=== PATIENT | male | born 1995 | race American Indian/Alaskan Native ===

== ENCOUNTER 2017-09-13 13:42 | Emergency (ER) | payer SELFPAY ==
[2017-09-13] MEDS ORDERED: MOTRIN PO ONE (20:31)
--- NOTE | 2017-09-13 20:31 | Emergency Department Report ---
ED Back Pain/Injury HPI - General Chief Complaint: Back Pain/Injury Stated Complaint: BACK PAIN POST FALL 2 DAYS AGO Time Seen by Provider: 09/13/17 19:43 Source: patient Limitations: No Limitations - History of Present Illness Initial Comments: Patient report back pain after playing soccer. Denies fall or injury. He said it started on Wednesday after he finished playing soccer and pain is increase in. Worse with movement and walking. Pain is located to his mid lower back distally. Pain is 9 out of 10 and aching. He said he took Tylenol and it helped but pain starts again after Tylenol wears off. Denies any numbness certainly to extremities. Denies any urinary burning frequency or urgency. Denies any abdominal pain. Denies any loss of bowel or bladder function. Denies any medical history. MD Complaint: back pain Onset/Timin -: days(s) Similar Symptoms Previously: No Place: street Radiation: none Severity: severe Severity scale (0 -10): 9 Quality: aching Consistency: constant Improves With: other (rest) Worsens With: movement, walking Context: other (Playing soccer) Associated Symptoms: denies other symptoms. denies: confusion, weakness, chest pain, numbness, difficulty walking, cough, difficulty urinating, diaphoresis, incontinence, fever/chills, constipation, headaches, abdominal pain, loss of appetite, malaise, nausea/vomiting, rash, seizure, shortness of breath, syncope Treatments Prior to Arrival: acetaminophen - Related Data Previous Rx's Medication Instructions Recorded Last Taken Type Ibuprofen [Motrin] 600 mg PO Q8H PRN #12 tablet 09/13/17 Unknown Rx Allergies Allergy/AdvReac Type Severity Reaction Status Date / Time No Known Allergies Allergy Unverified 09/13/17 14:05 ED Review of Systems ROS: Stated complaint: BACK PAIN POST FALL 2 DAYS AGO Other details as noted in HPI Comment: All other systems reviewed and negative Constitutional: no symptoms reported Respiratory: no symptoms reported Cardiovascular: denies: chest pain, palpitations, dyspnea on exertion, edema, syncope, paroxysmal nocturnal dyspnea Genitourinary: denies: urgency, dysuria, frequency, hematuria, discharge Musculoskeletal: back pain. denies: joint swelling, arthralgia, myalgia Skin: denies: rash Neurological: denies: headache, weakness, numbness, paresthesias, confusion, abnormal gait, vertigo ED Past Medical Hx - Past Medical History Previous Medical History?: No - Surgical History Past Surgical History?: No - Family History Family history: no significant - Social History Smoking Status: Never Smoker Substance Use Type: None - Medications Home Medications: Home Medications Medication Instructions Recorded Confirmed Last Taken Type Ibuprofen [Motrin] 600 mg PO Q8H PRN #12 tablet 09/13/17 Unknown Rx ED Physical Exam - General Limitations: No Limitations General appearance: alert, in no apparent distress - Head Head exam: Present: atraumatic, normocephalic, normal inspection, other - Eye Eye exam: Present: normal appearance (normal exam), PERRL, EOMI. Absent: nystagmus Pupils: Present: normal accommodation - ENT ENT exam: Present: normal exam, normal orophraynx, mucous membranes moist - Neck Neck exam: Present: normal inspection, full ROM, other (no C-spine tenderness). Absent: tenderness, lymphadenopathy - Respiratory Respiratory exam: Present: normal lung sounds bilaterally. Absent: respiratory distress, chest wall tenderness - Cardiovascular Cardiovascular Exam: Present: regular rate, normal rhythm, normal heart sounds - GI/Abdominal GI/Abdominal exam: Present: soft, normal bowel sounds. Absent: distended, tenderness, guarding, rebound, rigid, organomegaly, mass, bruit, pulsatile mass , hernia - Extremities Exam Extremities exam: Present: normal inspection, full ROM, normal capillary refill , other (no clubbing, cyanosis or edema. Positive pulses all extremities and no neurovascular compromise.). Absent: tenderness, pedal edema, joint swelling , calf tenderness - Back Exam Back exam: Present: normal inspection, full ROM, tenderness (L spine distally), vertebral tenderness (distally L spine), other (ambulates without any difficulties). Absent: CVA tenderness (R), CVA tenderness (L), muscle spasm, paraspinal tenderness, rash noted - Neurological Exam Neurological exam: Present: alert, oriented X3, normal gait, reflexes normal. Absent: motor sensory deficit - Expanded Neurological Exam Expanded Neurological exam: Absent: innattentive, memory loss-remote event, memory loss- recent event, ataxia, receptive aphasia, expressive aphasia, total aphasia, tremor, protecting the airway Patient oriented to: Present: person, place, time Speech: Present: fluid speech Cranial nerves: EOM's Intact: Normal, Gag Reflex: Normal, Tongue Deviation: Normal, Nystagmus: Normal, Facial Sensation: Normal Cerebellar function: Romberg: Normal Upper motor neuron: Pronator Drift: Normal, Sensory Extinction: Normal Sensory exam: Upper Extremity Light Touch: Normal, Upper Extremity Temperature: Normal, UE 2 Point Discrimination: Normal, Lower Extremity Light Touch: Normal, Lower Extremity Temperature: Normal, LE 2 Point Discrimination: Normal Motor strength exam: RUE: 5, LUE: 5, RLE: 5, LLE: 5 DTR: bicep (R): 2+, bicep (L): 2+, tricep (R): 2+, tricep (L): 2+, knee (R): 2+ , knee (L): 2+, ankle (R): 2+, ankle (L): 2+ Best Eye Response ([place]): (4) open spontaneously Best Motor Response (Vazquez): (6) obeys commands Best Verbal Response ([place]): (5) oriented Vazquez Total: 15 - Psychiatric Psychiatric exam: Present: normal affect, normal mood - Skin Skin exam: Present: warm, dry, intact, normal color. Absent: rash ED Course Vital Signs 09/13/17 14:05 Temperature 98.3 F Pulse Rate 77 Respiratory 16 Rate Blood Pressure 116/33 O2 Sat by Pulse 100 Oximetry - Reevaluation(s) Reevaluation #1: 09/13/17 21:41 Patient stable throughout ED course he was given Motrin 800 mg by mouth in emergency room for back pain which helped. ED Medical Decision Making - Radiology Data Radiology results: report reviewed X-ray of lumbar spine reveals negative lumbar spine series. Incidental findings for partial incomplete closure posterior element S1 - Medical Decision Making ED course: Is in a reports lower back pain after playing soccer 3 days ago. He reports taking Tylenol without any complete relief. Patient refers to pain as achy in and located in his lower back distally. Physical findings are tenderness to palpate to lumbar spine distally. Patient neurologically intact. I discussed the patient x-ray report which shows that negative lumbar spine series but patient did have incidental findings for partial incomplete closure posterior element SI . I discussed with him if he continues to have back pain he needs to follow-up with orthopedic doctor. He was given Motrin 800 mg by mouth and emergency room and discharged home in stable condition with prescription for Motrin Critical care attestation.: If time is entered above; I have spent that time in minutes in the direct care of this critically ill patient, excluding procedure time. ED Disposition Clinical Impression: Lower back pain Qualifiers: Chronicity: acute Back pain laterality: midline Sciatica presence: without sciatica Qualified Code(s): M54.5 - Low back pain Disposition: TO HOME OR SELFCARE Is pt being admited?: No Does the pt Need Aspirin: No Condition: Stable Instructions: Acute Low Back Pain (ED) Additional Instructions: Please refer to discharge instruction for referral to orthopedic doctor Follow-up with outside [facility] for primary care Take Motrin as prescribed for pain Prescriptions: Ibuprofen [Motrin] 600 mg PO Q8H PRN #12 tablet PRN Reason: Pain Referrals: GIGI MERAZ MD [Staff Physician] - 2-3 Days [facility] [Outside] - 2-3 Days Forms: Work/School Release Form(ED)
--- NOTE | 2017-09-13 20:59 | XRay Report ---
FINAL REPORT EXAM: XR SPINE LUMBOSACRAL 2-3V HISTORY: back pain x 2 days TECHNIQUE: Lumbar spine 4 views PRIORS: None. FINDINGS: Vertebral bodies demonstrate normal height and alignment. The disc spaces are within normal limits. There is no evidence of spondylolisthesis. Transverse and spinous processes are intact SI joints are unremarkable. Incidentally noted is partial incomplete closure posterior elements S1. IMPRESSION: Negative lumbar spine series
[2017-09-13 22:10] VITALS: BP 119/61
== END 2017-09-13 21:50 | disposition home or self-care (01) ==
LOC: ED 13:42
DX: M54.5 Low back pain (principal)
CPT/HCPCS: 72100